=== PATIENT | female | born 1990 | race Caucasian/White ===

== ENCOUNTER 2016-08-22 08:41 | Day surgery (SDC) | payer OTHER ==
[2016-08-22] VITALS (11 sets, daily range): BP systolic 110–148; BP diastolic 58–92; PULSE 64–80; RESP 15–23; Ht 154.9 cm; Wt 50.0 kg
[~2016-08-22] VITALS: Ht 154.9 cm; Wt 50.0 kg
[~2016-08-22 08:41] MED LIST: CIPR500T4 PO; CIPRO 400 MG/200 ML D5W IVPB ONE; EPHEDrine SULFATE 50 MG/5 ML SYG ONE; EPINEPHrine 0.1 MG/ML SYG ONE; HYDR-906 PO; NO HOME MEDICATIONS; ONDA-43 PO; ONDA4TAB8 PO; PANT40TA4 PO; PARO10TA26 PO; SERT50TA PO
[2016-08-22] MEDS ORDERED: METH-493 PO (09:14)
[2016-08-22 09:56] LABS: ADD SCAN DIFF NO
[2016-08-22 09:57] LABS: BASOPHILS % 0.8 % (0.0-2.0); EOSINOPHILS # 0.1 10^3/ul (0.0-0.5); EOSINOPHILS % 2.3 % (0.0-7.0); HEMATOCRIT 40.5 % (37.0-47.0); LYMPHOCYTES # 1.3 10^3/ul (0.8-2.9); LYMPHOCYTES % 28.4 % (15.0-51.0); MEAN CORPUSCULAR HEMOGLOBIN 29.1 pg (29.0-33.0); MEAN CORPUSCULAR HGB CONC 34.6 g/dl (32.0-37.0); MEAN CORPUSCULAR VOLUME 84.2 fl (82.0-101.0); MEAN PLATELET VOLUME 10.6 fl (7.4-10.4); MONOCYTE # 0.4 10^3/ul (0.3-0.9); MONOCYTES % 8.3 % (0.0-11.0); NEUTROPHIL # 2.8 10^3/ul (1.6-7.5); PLATELET COUNT 182 10^3/UL (140-415); RED BLOOD COUNT 4.81 10^6/ul (4.20-5.40); RED CELL DISTRIBUTION WIDTH 11.9 % (11.5-14.5); WHITE BLOOD COUNT 4.7 10^3/ul (4.8-10.8)
[2016-08-22 10:20] LABS: INR 1.18; PROTIME 15.1 Sec (12.2-14.2); PT RATIO 1.2
[2016-08-22 10:21] LABS: PARTIAL THROMBOPLASTIN TIME 32.7 Sec (25.0-35.0)
[2016-08-22 10:23] LABS: CALCIUM 9.6 mg/dl (8.4-10.2); CREATININE 0.54 mg/dl (0.44-1.00); POTASSIUM 4.1 mmol/L (3.5-5.1)
[2016-08-22] MEDS ORDERED: INDOMETHACIN 50 MG SUPP PR ONE (11:29)
[2016-08-22] MEDS ORDERED: IOHEXOL 300MG/ML 30 ML BTL ONE (11:29)
[2016-08-22] MEDS ORDERED: MIDAZOLAM 1 MG/ML 2 ML INJ ONE (11:40)
[2016-08-22] MEDS ORDERED: ONDANSETRON 4 MG INJ ONE (12:06)
[2016-08-22] MEDS ORDERED: DEXAMETHASONE 4 MG/ML 1 ML INJ ONE (12:06)
[2016-08-22] MEDS ORDERED: FAMOTIDINE 20 MG INJ ONE (12:06)
[2016-08-22] MEDS ORDERED: LIDOCAINE 2% (SDV) 5 ML INJ ONE (12:13)
[2016-08-22] MEDS ORDERED: FENTAnyl 50 MCG/ML VIAL ONE (12:13)
[2016-08-22] MEDS ORDERED: PROPOFOL 20 ML ONE (12:13)
[2016-08-22] MEDS ORDERED: DIPHENHYDRAMINE 50 MG INJ IV PRN (13:30)
[2016-08-22] MEDS ORDERED: HYDROmorphONE (0.2 MG/ML) 10ML SYG IV PRN (13:30)
[2016-08-22] MEDS ORDERED: ONDANSETRON 4 MG INJ IV PRN (13:30)
[2016-08-22] MEDS ORDERED: PROCHLORPERAZINE 10 MG INJ IV PRN (13:30)
[2016-08-22] MEDS ORDERED: FENTAnyl 50 MCG/ML VIAL IV PRN (13:30)
[2016-08-22] MEDS ORDERED: MEPERIDINE 25 MG INJ IV PRN (13:30)
[2016-08-22] MEDS ORDERED: LACTATED RINGER'S 500 ML IV SCH (14:00)
[2016-08-22] MEDS ORDERED: INDOMETHACIN 50 MG SUPP PR SCH (14:00)
--- NOTE | 2016-08-22 16:02 | RADRPT ---
Vent Rate: 71 bpm RR Interval: 0 msec NM Interval: 160 msec QRS Duration: 96 msec QT Interval: 388 msec QTC Interval: 421 msec P-R-T [place]: 56 - 70 - 60 degrees Normal sinus rhythm Normal ECG Electronically Signed By: Fausto Thacker [id number]
--- NOTE | 2016-08-22 17:54 | RADRPT ---
PROCEDURE: Intraoperative imaging for ERCP with fluoroscopy. CLINICAL INDICATION: Right upper quadrant pain. Intraoperative. TECHNIQUE: 4 images of the right upper quadrant of the abdomen were obtained in the operating room with an image intensifier. No radiologist was in attendance. 0.1 minutes of fluoroscopy time was used. COMPARISON: 06/10/2015. FINDINGS: Images demonstrate the endoscope in position and contrast injected into the common bile duct. Surgi eric clips are present from previous cholecystectomy. Common bile duct is mildly dilated. A balloon sweep was made. The pancreatic duct was not injected. IMPRESSION: 1. ERCP as described above. RPTAT: QQ .Nhan Lehman MD, MD Date Time Electronically viewed and signed by .Nhan Lehman MD, on 08/22/2016 17:53 .R/
--- NOTE | 2016-08-23 08:55 | GILP ---
DATE OF PROCEDURE: PROCEDURE PERFORMED: ERCP, removal of debris, biopsy, and replacement of stent. INDICATION: A 26-year-old female undergoing this procedure for persistent right upper quadrant pain for the last 3 to 4 months. MRCP revealed dilated bile duct and some narrowing in the distal part of the bile duct. The purpose of this procedure is to evaluate the biliary system and perform thera peutic endoscopy at the same time. INFORMED CONSENT: The risk of the procedure, related and unrelated complications, anesthetic risks, alternatives discussed. Informed consent was obtained. DESCRIPTION OF PROCEDURE: The patient was brought to the OR, sedated by the anesthesiologist, place mode in a prone position. Patient was intubated and Cipro was administered. After obtaining sedation, scope was passed with much ease into esophagus and advanced further down into the stomach. Ampulla was identified. Ampulla had some mild cauliflower like appearance. This could be due to the infla mmation. Selective cholangiogram done. Bile duct appeared dilated. No stone was identified. At t his point, a 12 mm balloon was inflated and balloon sweeping was done. Some debris and sludge came out. At this point, decided to do the biopsy. We did a biopsy of the ampulla at the 11 o'clock pos ition and also the distal part of the bile duct, the papillary portion. A total of 3 biopsies obtai nicol. There was some oozing. At this point, decided to introduce the SpyGlass. SpyGlass was introd uced. The bile duct appeared clean. Multiple bubbles were seen. Pictures were taken. The intra-a mpullary portion of the bile duct was identified. Did not see any tumor; however, the ampullary tis chago was seen close to the intrapapillary portion of the bile duct. There was some bleeding seen com ing out from the biopsy site. At this point, SpyGlass was removed. We observed. Oozing was persis tent, so decided to deploy the stent. The stent was successfully deployed and due to the pressure o f the tamponade, the bleeding had completely stopped. Excellent drainage was established and scope was removed with good patient tolerance. IMPRESSION: 1. Removal of sludge from the distal part of the bile duct. 2. Bile duct was mildly dilated. 3. No stricture or tumor was identified. 4. Biopsies taken from the ampulla and intrapapillary portion of the bile duct. PLAN: Review the histopathology and based on that, we will decide regarding the treatment. Also, myah canchola's stent needs to be removed after 3 to 4 months. Dictated By: IDANIA SHARMA/DAXA Conf#: [id number] DID#: [id number]
== END 2016-08-22 18:50 | disposition home or self-care (01) ==
LOC: SDS 08:41
PROVIDERS: ATTEND Internal Medicine Gastroenterology
DX: K83.8 Other specified diseases of biliary tract (principal); E03.9 Hypothyroidism, unspecified
CPT/HCPCS: 43261; 43276; 74330; 80048; 85025; 85610; 85730; 88305; 93005; C2617; J0171; J0744; J1100; J2250; J2405; J3010; Q9967; Z7512; Z7610

== ENCOUNTER 2016-08-24 10:57 | Emergency (ER) | payer OTHER ==
[~2016-08-24] VITALS: Ht 165.1 cm; Wt 48.5 kg
[~2016-08-24 10:57] MED LIST changes: -CIPR500T4 PO; -CIPRO 400 MG/200 ML D5W IVPB ONE; -EPHEDrine SULFATE 50 MG/5 ML SYG ONE; -EPINEPHrine 0.1 MG/ML SYG ONE; -HYDR-906 PO; +METH-493 PO; -NO HOME MEDICATIONS; -ONDA-43 PO; -ONDA4TAB8 PO; -PANT40TA4 PO; -PARO10TA26 PO; -SERT50TA PO
[2016-08-24 11:06] VITALS: Ht 165.1 cm; Wt 48.5 kg
[2016-08-24] MEDS ORDERED: SOD CHLORIDE 0.9% 1,000 ML IV STA (11:15)
[2016-08-24] MEDS ORDERED: FAMOTIDINE 20 MG INJ IV STA (11:15)
[2016-08-24] MEDS ORDERED: ONDANSETRON 4 MG INJ IV STA (11:15)
[2016-08-24] MEDS ORDERED: morphine 4 MG/ML VIAL IV STA (11:15)
[2016-08-24 12:02] LABS: ADD SCAN DIFF NO
[2016-08-24 12:11] LABS: BASOPHILS % 0.3 % (0.0-2.0); EOSINOPHILS % 0.3 % (0.0-7.0); HEMATOCRIT 39.4 % (37.0-47.0); HEMOGLOBIN 14.1 g/dl (12.0-16.0); LYMPHOCYTES # 1.1 10^3/ul (0.8-2.9); LYMPHOCYTES % 11.7 % (15.0-51.0); MEAN CORPUSCULAR HEMOGLOBIN 30.1 pg (29.0-33.0); MEAN CORPUSCULAR HGB CONC 35.8 g/dl (32.0-37.0); MEAN CORPUSCULAR VOLUME 84.2 fl (82.0-101.0); MEAN PLATELET VOLUME 10.4 fl (7.4-10.4); MONOCYTE # 0.5 10^3/ul (0.3-0.9); MONOCYTES % 5.6 % (0.0-11.0); NEUTROPHIL # 7.4 10^3/ul (1.6-7.5); NEUTROPHILS % 81.7 % (39.0-77.0); PLATELET COUNT 199 10^3/UL (140-415); RED BLOOD COUNT 4.68 10^6/ul (4.20-5.40); RED CELL DISTRIBUTION WIDTH 11.8 % (11.5-14.5); WHITE BLOOD COUNT 9.1 10^3/ul (4.8-10.8)
[2016-08-24 12:25] LABS: ALBUMIN 5.1 g/dl (3.3-4.9); ALBUMIN/GLOBULIN RATIO 1.96; BILIRUBIN,INDIRECT 2.4 mg/dl (0-1.1); BILIRUBIN,TOTAL 2.4 mg/dl (0.2-1.3); CALCIUM 9.4 mg/dl (8.4-10.2); CREATININE 0.6 mg/dl (0.44-1.00); TOTAL PROTEIN 7.7 g/dl (6.1-8.1)
[2016-08-24 12:34] LABS: ADD UMIC NO; URINE BILIRUBIN (Dip) 1+ (NEGATIVE); URINE BLOOD (Dip) NEGATIVE (NEGATIVE); URINE COLOR LT. YELLOW (YELLOW); URINE GLUCOSE (Dip) NEGATIVE (NEGATIVE); URINE KETONES (Dip) 3+ (NEGATIVE); URINE LEUKOCYTE ESTERASE (Dip) NEGATIVE (NEGATIVE); URINE NITRITE (Dip) NEGATIVE (NEGATIVE); URINE TOTAL PROTEIN (Dip) NEGATIVE (NEGATIVE); URINE UROBILINOGEN (Dip) 0.2 E.U./dL (0.1-1.0)
[2016-08-24 12:59] LABS: ICTOTEST NEGATIVE (NEGATIVE)
[2016-08-24] MEDS ORDERED: HYDROmorphONE 1 MG/ML SYG IV STA (13:59)
--- NOTE | 2016-08-24 14:24 | RADRPT ---
PROCEDURE: CT scan of the abdomen and pelvis without IV contrast. CLINICAL INDICATION: Right upper quadrant pain. ERCP 1 day ago with prior cholecystectomy in 2010 . TECHNIQUE: Thin section axial, coronal and sagittal images were performed through the abdomen and pelvis without contrast. Radiation Dose: CTDI: 4.7 and DLP: 248.3 One or more of the following dose reduction techniques were used: - Automated exposure control. - Adjustment of the mA and/or kV according to patient size. Use of iterative reconstruction technique. COMPARISON: Chest x-ray 04/14/2016 06:18 a.m. FINDINGS: Soft tissues: Normal. Lungs and pleural spaces: There is peripheral atelectasis in the dependent portion of the lungs. No pleural effusion or pulmonary nodule is identified. Heart: Normal. The liver, common bile duct and gallbladder: There is pneumobilia. The liver measures 11.9 cm AP. There are clips in the karla hepatis area related to prior cholecystectomy. A 2.8 x 2.6 by 1.4 cm f luid collection is noted in the area of the karla hepatis.A biliary stent extends from the proximal common bile duct into the distal second portion of the duodenum. Gastrointestinal: The stomach and small bowel loops are normal. The colon is unremarkable. There a re diverticula in the AC distal descending and sigmoid colon. Pancreas: Normal. Kidneys, bladder and adrenal glands : The adrenal glands are normal. The kidneys are unremarkable. The urinary bladder is normal. Spleen: Normal. No enlarged inguinal lymph nodes are identified. Lymph nodes: No enlarged inguinal, pelvic sidewall, retroperitoneal, mesenteric or periportal lymph nodes are identified. Reproductive system and pelvis : The uterus is slightly retroflexed. There is a U-shaped metal clip along the ventral lower uterine segment. Bony elements: Normal. Vasculature: Normal. IMPRESSION: 1. Pneumobilia with a biliary stent extending from the proximal common bile duct into the second po rtion of the duodenum. 2. 2.6 x 2.8 by 1.4 cm encapsulated fluid collection inferior to the clips in the karla hepatis are a which may be the result of a hematoma, seroma or abscess. 3. Prior pelvic surgery. RPTAT:AAJJ Sim Apple, Physician Date Time Electronically viewed and signed by Sim Chiu, Physician on 08/24/2016 14:24 JM/
--- NOTE | 2016-08-24 14:47 | ERD ---
ER Documentation Chief Complaint Date/Time DATE: 08/24/16 TIME: 14:43 Chief Complaint Complains of abdominal pain post surgery sent from MD for evaluation HPI This is a 26-year-old female presents to the emergency room for evaluation of abdominal pain. This patient states that she has had abdominal pain for the past 2 days and localizes it to the right upper quadrant. She states that she has had a previous cholecystectomy and recently underwent an ERCP by her sanitary chemist Dr. Sánchez who evaluated this patient in office and referred her to the emergency room for further workup. The patient states that she has some nausea denies any vomiting he denies any radiation of the pain. She denies any aggravating or relieving factors for her symptoms. ROS All systems reviewed and are negative except as per history of present illness. Medications Home Meds Reported Medications Methimazole* (Methimazole*) 5 Mg Tablet, 5 MG PO QHS, TAB 08/22/16 Discontinued Reported Medications Sertraline Hcl* (Zoloft*) 50 Mg Tablet, 50 MG PO DAILY, TAB 02/07/15 Paroxetine Hcl* (Paxil*) 10 Mg Tablet, 15 MG PO DAILY, TAB 02/07/15 [No Home Medications] No Conflict Check 03/15/10 Discontinued Scripts Ondansetron Hcl* (Zofran*) 4 Mg Tablet, 4 MG PO Q6H for NAUSEA AND/OR VOMITING, #30 TAB Prov:DEMI SHAY PA-C 06/03/15 Hydrocodone Bit-Acetaminophen ([place]) 5-325 Mg Tablet, 1 TAB PO Q4H Y for PAIN, #7 TAB Prov:DEMI SHAY PA-C 06/03/15 Ondansetron Hcl* (Zofran*) 4 Mg Tab, 4 MG PO Q6H Y for NAUSEA AND OR VOMITING for 10 Days, TAB Prov:ULISSES WORLEY MD 02/11/15 Ciprofloxacin Hcl* (Ciprofloxacin Hcl*) 500 Mg Tablet, 500 MG PO BID for 10 Days , TAB Prov:ULISSES WORLEY MD 02/11/15 Pantoprazole* (Pantoprazole*) 40 Mg Tabec, 40 MG PO DAILY@06 for 28 Days, BOTTLE Prov:ULSISES WORLEY MD 02/11/15 Allergies Allergies: Coded Allergies: Penicillins (Unverified Allergy, Unknown, 08/24/16) PMhx/Soc History of Surgery: Yes (Jaclyn, ERCP) Anesthesia Reaction: No Hx Neurological Disorder: No Hx Respiratory Disorders: No Hx Cardiac Disorders: No Hx Psychiatric Problems: No Hx Miscellaneous Medical Probl: No Hx Alcohol Use: No Hx Substance Use: No Hx Tobacco Use: No Smoking Status: Never smoker Physical Exam Vitals Vital Signs Date Time Temp Pulse Resp B/P Pulse Ox O2 Delivery O2 Flow Rate FiO2 08/24/16 11:15 71 18 117/70 99 Room Air 08/24/16 11:06 98.8 83 20 122/79 98 Physical Exam INITIAL VITAL SIGNS: Reviewed by me GENERAL: The patient is well developed and appropriate for usual state of health in no apparent distress HEENT: Pupils equal, round, and reactive to light. EOMI. There is no scleral icterus. NECK: C-spine is soft and supple, there is no meningismus. There is no cervical lymphadenopathy. LUNGS: Clear to auscultation bilaterally. There are no rales, wheezes or rhonchi. HEART: Regular rate and rhythm, no murmurs, clicks, rubs or gallops. ABDOMEN: Positive Andino sign, soft, non-tender, non-distended. There are bowel sounds in all four quadrants. No rebound or guarding. EXTREMITIES: There is no peripheral cyanosis or edema. No focal swelling or erythema. NEUROLOGICAL: The patient moves all four extremities with 5/5 strength. Cranial nerves II - XII are intact. Normal gait. Alert and oriented SKIN: There is no apparent rash or petechiae. HEME/LYMPHATIC: There is no evidence of excessive bruising or lymphedema. PSYCHIATRIC: The patient does not appear anxious or depressed. Result Diagram: 08/24/16 1150 08/24/16 1150 Results 24 hrs Laboratory Tests Test 08/24/16 11:50 White Blood Count 9.110^3/ul Red Blood Count 4.6810^6/ul Hemoglobin 14.1g/dl Hematocrit 39.4% Mean Corpuscular Volume 84.2fl Mean Corpuscular Hemoglobin 30.1pg Mean Corpuscular Hemoglobin Concent 35.8g/dl Red Cell Distribution Width 11.8% Platelet Count 16188^3/UL Mean Platelet Volume 10.4fl Neutrophils % 81.7% Lymphocytes % 11.7% Monocytes % 5.6% Eosinophils % 0.3% Basophils % 0.3% Nucleated Red Blood Cells % 0.0/100WBC Neutrophils # 7.410^3/ul Lymphocytes # 1.110^3/ul Monocytes # 0.510^3/ul Eosinophils # 0.010^3/ul Basophils # 0.010^3/ul Nucleated Red Blood Cells # 0.010^3/ul Urine Color LT. YELLOW Urine Clarity CLEAR Urine pH 6.0 Urine Specific [place] 1.025 Urine Ketones 3+ Urine Nitrite NEGATIVE Urine Bilirubin 1+ Urine Ictotest NEGATIVE Urine Urobilinogen 0.2 E.U./dL Urine Leukocyte Esterase NEGATIVE Urine Hemoglobin NEGATIVE Urine Glucose NEGATIVE% Urine Total Protein NEGATIVE Urine Test NEGATIVE Sodium Level 141mmol/L Potassium Level 4.0mmol/L Chloride Level 102mmol/L Carbon Dioxide Level 26mmol/L Anion Gap 17 Blood Urea Nitrogen 19mg/dl Creatinine 0.60mg/dl Glucose Level 75mg/dl Calcium Level 9.4mg/dl Total Bilirubin 2.4mg/dl Direct Bilirubin 0.00mg/dl Indirect Bilirubin 2.4mg/dl Aspartate Amino Transf (AST/SGOT) 26IU/L Alanine Aminotransferase (ALT/SGPT) 29IU/L Alkaline Phosphatase 89IU/L Total Protein 7.7g/dl Albumin 5.1g/dl Globulin 2.60g/dl Albumin/Globulin Ratio 1.96 Lipase 97U/L Current Medications Medications (Trade) Dose Ordered Sig/Mathew Route PRN Reason Start Time Stop Time Status Last Admin Dose Admin Sodium Chloride (NS) 1,000 ml @ 1,000 mls/hr Q1H STAT IV 08/24/16 11:15 08/24/16 12:14 DC 08/24/16 12:18 Morphine Sulfate (morphine) 4 mg ONCE STAT IV 08/24/16 11:15 08/24/16 11:16 DC 08/24/16 12:18 Ondansetron HCl (Zofran Inj) 4 mg ONCE STAT IV 08/24/16 11:15 08/24/16 11:16 DC 08/24/16 12:17 Famotidine (Pepcid Iv) 20 mg ONCE STAT IV 08/24/16 11:15 08/24/16 11:16 DC 08/24/16 12:17 Hydromorphone HCl (Dilaudid) 0.5 mg ONCE STAT IV 08/24/16 13:59 08/24/16 14:00 DC Procedures/MDM CT abdomen pelvis without: 1. Pneumobilia with a biliary stent extending from the proximal common bile duct into the second portion of the duodenum. 2. 2.6 x 2.8 by 1.4 cm encapsulated fluid collection inferior to the clips in the karla hepatis area which may be the result of a hematoma, seroma or abscess. 3. Prior pelvic surgery. This 26-year-old female presents to the ER for evaluation of abdominal pain. The patient was sent in by her sanitary chemist for evaluation of abdominal pain. When I evaluated this patient she did have right upper quadrant pain. Lab work does reveal mild elevation in indirect bilirubin. I did obtain a CAT scan of the patient's abdomen and pelvis. Please see results above. I contacted her sanitary chemist and had discussed the patient's CAT scan results findings. He was concerned about the fluid collection in got a second opinion from radiologist, Dr. Lehman. Dr. Lopez states that this fluid collection is actually in the cystic duct. This patient has no fever, no signs of ascending cholangitis at this time. I have spoken to Dr. Sánchez who states this patient can be discharged home with a prescription for ciprofloxacin to take over the course of the next 7 days with instructions to follow-up in his office within a week. I relayed this information to the patient was in agreement with the plan of care. She will be discharged home with a prescription for [place] for breakthrough pain, and ciprofloxacin. Departure Diagnosis: Primary Impression: Abdominal pain Additional Impressions: Abdominal colic History of ERCP S/P ERCP Condition: Stable PRAKASH REDDY DO Aug 24, 2016 14:47
[2016-08-24] MEDS ORDERED: CIPR500T4 PO (14:49)
[2016-08-24] MEDS ORDERED: ONDA4TAB8 PO (14:49)
[2016-08-24] MEDS ORDERED: HYDR-906 PO (14:49)
[2016-08-24 15:47] VITALS: BP 117/71; PULSE 65; RESP 20
== END 2016-08-24 15:49 | disposition home or self-care (01) ==
LOC: E/R 10:57
DX: R10.11 Right upper quadrant pain (principal); R40.2252 Coma scale, best verbal response, oriented, at arrival to emergency department; R40.2142 Coma scale, eyes open, spontaneous, at arrival to emergency department; R40.2362 Coma scale, best motor response, obeys commands, at arrival to emergency department; R10.2 Pelvic and perineal pain
CPT/HCPCS: 74176; 80053; 81003; 83690; 84703; 85025; J1170; J2270; J2405; J7030; Z7610; 36415; 96374; 96375

== ENCOUNTER 2016-09-04 13:49 | Emergency (ER) | payer OTHER ==
[~2016-09-04] VITALS: Ht 154.9 cm; Wt 48.0 kg
[~2016-09-04 13:49] MED LIST changes: +CIPR500T4 PO; +HYDR-906 PO; +ONDA4TAB8 PO
[2016-09-04 14:01] VITALS: Ht 154.9 cm; Wt 48.0 kg
[2016-09-04] MEDS ORDERED: ONDANSETRON 4 MG INJ IV STA (14:58)
[2016-09-04] MEDS ORDERED: morphine 4 MG/ML VIAL IV STA (14:58)
[2016-09-04] MEDS ORDERED: SOD CHLORIDE 0.9% 1,000 ML IV STA (14:58)
[2016-09-04 15:27] LABS: ADD SCAN DIFF NO
[2016-09-04 15:29] LABS: BASOPHILS % 0.7 % (0.0-2.0); EOSINOPHILS # 0.1 10^3/ul (0.0-0.5); EOSINOPHILS % 1.8 % (0.0-7.0); HEMATOCRIT 40.2 % (37.0-47.0); HEMOGLOBIN 13.9 g/dl (12.0-16.0); LYMPHOCYTES # 1.4 10^3/ul (0.8-2.9); LYMPHOCYTES % 23.4 % (15.0-51.0); MEAN CORPUSCULAR HEMOGLOBIN 29.1 pg (29.0-33.0); MEAN CORPUSCULAR HGB CONC 34.6 g/dl (32.0-37.0); MEAN CORPUSCULAR VOLUME 84.1 fl (82.0-101.0); MEAN PLATELET VOLUME 10.6 fl (7.4-10.4); MONOCYTE # 0.4 10^3/ul (0.3-0.9); MONOCYTES % 7.4 % (0.0-11.0); NEUTROPHILS % 66.5 % (39.0-77.0); PLATELET COUNT 225 10^3/UL (140-415); RED BLOOD COUNT 4.78 10^6/ul (4.20-5.40)
--- NOTE | 2016-09-04 15:38 | RADRPT ---
PROCEDURE: Abdominal Ultrasound (right upper quadrant). CLINICAL INDICATION: Right upper quadrant pain. TECHNIQUE: Multiple real-time longitudinal and transverse images of the right upper quadrant of th e abdomen were acquired utilizing a curved array transducer. Images were reviewed on a high-resoluti on PACS workstation. COMPARISON: CT abdomen pelvis 08/14/2016 FINDINGS: The liver is normal in size and echogenicity. No focal masses are identified. There is mild extra hepatic ductal dilatation, normal in the post cholecystectomy setting. A common bile duct stent is in place. The common bile duct measures 9.7 mm in diameter. There is no evidence of intrahepatic du ctal dilatation. The gallbladder is surgically absent. The visualized portions of the pancreas are unremarkable with obscuration of the tail of the pancrea s. No free fluid is identified. There is no evidence of right hydronephrosis or renal calcification. The right kidney measures 10.4 cm in length. The visualized portions of the aorta and inferior vena cava are within normal limits. IMPRESSION: 1. Status post cholecystectomy. 2. Mild extrahepatic ductal dilatation which can be normal in the post cholecystectomy setting. In cidental note is made of a common bile duct stent. RPTAT: KK .Cesar Hoang MD, MD Date Time Electronically viewed and signed by .Cesar Hoang MD, MD on 09/04/2016 15:38 .B/
[2016-09-04 15:45] LABS: ADD UMIC YES; UR AMORPHOUS CRYSTAL FEW /HPF (NONE SEEN); UR ASCORBIC ACID 40 mg/dL (NEGATIVE); UR BILIRUBIN (Dip) NEGATIVE (NEGATIVE); UR BLOOD (Dip) NEGATIVE (NEGATIVE); UR CLARITY CLOUDY (CLEAR); UR COLOR YELLOW (YELLOW); UR GLUCOSE (Dip) NEGATIVE (NEGATIVE); UR KETONES (Dip) TRACE mg/dL (NEGATIVE); UR LEUKOCYTE ESTERASE (Dip) NEGATIVE Leu/ul (NEGATIVE); UR MUCUS FEW /HPF (NONE SEEN); UR NITRITE (Dip) NEGATIVE (NEGATIVE); UR RBC 1 /HPF (0-5); UR SPECIFIC GRAVITY (Dip) 1.018 (1.003-1.030); UR SQUAMOUS EPITHELIAL CELL FEW /HPF (FEW); UR TOTAL PROTEIN (Dip) NEGATIVE (NEGATIVE); UR UROBILINOGEN (Dip) NEGATIVE (NEGATIVE)
[2016-09-04 15:51] LABS: ALBUMIN 4.9 g/dl (3.3-4.9); ALBUMIN/GLOBULIN RATIO 2.04; BILIRUBIN,INDIRECT 1.7 mg/dl (0-1.1); BILIRUBIN,TOTAL 1.7 mg/dl (0.2-1.3); CALCIUM 9.3 mg/dl (8.4-10.2); CREATININE 0.63 mg/dl (0.44-1.00); POTASSIUM 3.8 mmol/L (3.5-5.1); TOTAL PROTEIN 7.3 g/dl (6.1-8.1)
[2016-09-04] MEDS ORDERED: TRAM50TA2 PO (16:40)
--- NOTE | 2016-09-09 13:54 | ERD ---
ER Documentation Chief Complaint Date/Time DATE: 09/09/16 TIME: 13:49 Chief Complaint ruq abd pain since last week with nausea HPI This 26-year-old female presents with a two-week history of intermittent right upper quadrant abdominal pain. Is worse after eating with nausea. History significant for biliary stent placed [address] MARILIA disla with the patient described as sludge in the common bile duct status post cholecystectomy. She denies any vomiting, fevers. She denies any lower abdominal pain or urinary complaints. She was seen here 1 week ago had a CT scan of the abdomen and pelvis which showed dilated cystic duct according to the radiologist. She was treated empirically with Cipro for possible subclinical infection. She had minimal improvement with antibiotics. She has an appointment with GI this week. ROS All systems reviewed and are negative except as per history of present illness. Medications Home Meds Active Scripts Tramadol HCl (Tramadol HCl) 50 Mg Tablet, 50 MG PO Q4 Y for PAIN, #20 TAB Prov:TONIA MOREIRA MD 09/04/16 Ondansetron Hcl* (Zofran*) 4 Mg Tablet, 4 MG PO Q8H Y for NAUSEA AND/OR VOMITING , #6 TAB Prov:PRAKASH REDDY DO 08/24/16 Hydrocodone/Acetaminophen ([place] 5-325 Tablet) 1 Each Tablet, 1 TAB PO Q6H Y for PAIN, #10 TAB Prov:PRAKASH REDDY DO 08/24/16 Ciprofloxacin Hcl* (Ciprofloxacin Hcl*) 500 Mg Tablet, 500 MG PO BID for 7 Days , TAB Prov:PRAKASH REDDY DO 08/24/16 Reported Medications Methimazole* (Methimazole*) 5 Mg Tablet, 5 MG PO QHS, TAB 08/22/16 Allergies Allergies: Coded Allergies: Penicillins (Unverified Allergy, Unknown, 08/24/16) PMhx/Soc History of Surgery: Yes (Jaclyn, ERCP) Anesthesia Reaction: No Hx Neurological Disorder: No Hx Respiratory Disorders: No Hx Cardiac Disorders: No Hx Psychiatric Problems: No Hx Miscellaneous Medical Probl: No Hx Alcohol Use: No Hx Substance Use: No Hx Tobacco Use: No Smoking Status: Never smoker Physical Exam Physical Exam Const: [] Alert, [id number]. Head: Atraumatic Eyes: Normal Conjunctiva ENT: Normal External Ears, Nose and Mouth. Neck: Full range of motion..~ No meningismus. Resp: Clear to auscultation bilaterally Cardio: Regular rate and rhythm, no murmurs Abd: Soft, minimal right upper quadrant tenderness without rebound. There is no tenderness at McBurney's point non distended. Normal bowel sounds Skin: No petechiae or rashes Back: No midline or flank tenderness Ext: No cyanosis, or edema Neur: Awake and alert Psych: Normal Mood and Affect Results 24 hrs Laboratory Tests Test 09/04/16 14:10 09/04/16 15:15 White Blood Count 6.010^3/ul Red Blood Count 4.7810^6/ul Hemoglobin 13.9g/dl Hematocrit 40.2% Mean Corpuscular Volume 84.1fl Mean Corpuscular Hemoglobin 29.1pg Mean Corpuscular Hemoglobin Concent 34.6g/dl Red Cell Distribution Width 12.0% Platelet Count 64741^3/UL Mean Platelet Volume 10.6fl Neutrophils % 66.5% Lymphocytes % 23.4% Monocytes % 7.4% Eosinophils % 1.8% Basophils % 0.7% Nucleated Red Blood Cells % 0.0/100WBC Neutrophils # 4.010^3/ul Lymphocytes # 1.410^3/ul Monocytes # 0.410^3/ul Eosinophils # 0.110^3/ul Basophils # 0.010^3/ul Nucleated Red Blood Cells # 0.010^3/ul Sodium Level 141mmol/L Potassium Level 3.8mmol/L Chloride Level 102mmol/L Carbon Dioxide Level 28mmol/L Anion Gap 15 Blood Urea Nitrogen 10mg/dl Creatinine 0.63mg/dl Glucose Level 86mg/dl Calcium Level 9.3mg/dl Total Bilirubin 1.7mg/dl Direct Bilirubin 0.00mg/dl Indirect Bilirubin 1.7mg/dl Aspartate Amino Transf (AST/SGOT) 22IU/L Alanine Aminotransferase (ALT/SGPT) 27IU/L Alkaline Phosphatase 68IU/L Total Protein 7.3g/dl Albumin 4.9g/dl Globulin 2.40g/dl Albumin/Globulin Ratio 2.04 Lipase 89U/L Urine Color YELLOW Urine Clarity CLOUDY Urine pH 7.0 Urine Specific [place] 1.018 Urine Ketones TRACEmg/dL Urine Nitrite NEGATIVEmg/dL Urine Bilirubin NEGATIVEmg/dL Urine Urobilinogen NEGATIVEmg/dL Urine Leukocyte Esterase NEGATIVELeu/ul Urine Microscopic RBC 1/HPF Urine Microscopic WBC 0/HPF Urine Squamous Epithelial Cells FEW/HPF Urine Amorphous Crystals FEW/HPF Urine Mucus FEW/HPF Urine Hemoglobin NEGATIVEmg/dL Urine Glucose NEGATIVEmg/dL Urine Total Protein NEGATIVEmg/dl Current Medications Medications (Trade) Dose Ordered Sig/Mathew Route PRN Reason Start Time Stop Time Status Last Admin Dose Admin Sodium Chloride (NS) 1,000 ml @ 1,000 mls/hr Q1H STAT IV 09/04/16 14:58 09/04/16 15:57 DC Morphine Sulfate (morphine) 4 mg ONCE STAT IV 09/04/16 14:58 09/04/16 15:01 DC Ondansetron HCl (Zofran Inj) 4 mg ONCE STAT IV 09/04/16 14:58 09/04/16 15:01 DC Procedures/MDM CBC, CMP and lipase showed no acute abnormalities. There is mildly elevated indirect bilirubin as well as total bilirubin. Direct bilirubin is normal. Lipase is normal. Right upper quadrant limited ultrasound shows no acute abnormalities. There is a mildly dilated common bile duct which may be normal in the setting of biliary stent according the radiologist. CT was deferred given normal CT scan 1 week ago no changes in laboratory results or condition. Call was placed to Dr. CAPELLAN, who is familiar with the patient. He is comfortable treating the patient as an outpatient for right upper quadrant pain. She has had previous studies which showed no evidence of obstruction or infection and can be followed as an outpatient. She will be discharged home a short course of tramadol and outpatient follow-up. Patient was advised to return for fevers, vomiting, worsening pain, blood, new worsening symptoms. Signs and symptoms do not currently suggest appendicitis, acute abdomen, obstruction. There is no signs or symptoms to suggest pneumonia, additional causes of presenting complaints Departure Diagnosis: Primary Impression: Abdominal pain Abdominal location: right upper quadrant Qualified Code: R10.11 - Right upper quadrant abdominal pain Condition: Stable Patient Instructions: Abdominal Pain Additional Instructions: Examinations normal today. Discussed with Dr. valderrama. suspect normal postoperative pain. Return for fevers, vomiting, new or worsening symptoms or with GI as scheduled. TONIA MOREIRA MD Sep 09, 2016 13:54
== END 2016-09-04 16:55 | disposition home or self-care (01) ==
LOC: FTE 13:49
DX: R10.11 Right upper quadrant pain (principal)
CPT/HCPCS: 76705; 80053; 81001; 83690; 85025; J7030; Z7502

== ENCOUNTER 2017-01-23 09:24 | Day surgery (SDC) | payer OTHER ==
[~2017-01-23] VITALS: Ht 154.9 cm; Wt 48.3 kg
[2017-01-23] VITALS (11 sets, daily range): BP systolic 91–136; BP diastolic 69–86; PULSE 67–106; RESP 16–39; Ht 154.9 cm; Wt 48.3 kg
[~2017-01-23 09:24] MED LIST changes: +LIDOCAINE 2% (SDV) 5 ML INJ ONE; +TRAM50TA2 PO
[2017-01-23] MEDS ORDERED: PROPOFOL 100 ML ONE (10:40)
[2017-01-23] MEDS ORDERED: hydrALAzine 20 MG INJ IV PRN (11:00)
[2017-01-23] MEDS ORDERED: FENTAnyl 50 MCG/ML VIAL IV PRN ×3 (11:00)
[2017-01-23] MEDS ORDERED: KETOROLAC 30 MG INJ IV PRN (11:00)
[2017-01-23] MEDS ORDERED: ONDANSETRON 4 MG INJ IV PRN (11:00)
[2017-01-23] MEDS ORDERED: OXYCODONE/ACETAMINOPHEN (5/325) TAB PO PRN ×2 (11:00)
[2017-01-23] MEDS ORDERED: DIPHENHYDRAMINE 50 MG INJ IV PRN (11:00)
[2017-01-23] MEDS ORDERED: EPHEDrine SULFATE 50 MG/5 ML SYG IV PRN (11:00)
[2017-01-23] MEDS ORDERED: LABETALOL HCL 20MG INJ IV PRN (11:00)
[2017-01-23] MEDS ORDERED: MEPERIDINE 25 MG INJ IV PRN (11:00)
[2017-01-23] MEDS ORDERED: METOCLOPRAMIDE 10 MG INJ IV PRN (11:00)
[2017-01-23] MEDS ORDERED: HYDROmorphONE (0.2 MG/ML) 10ML SYG IV PRN ×3 (11:00)
[2017-01-23] MEDS ORDERED: CIPROFLOXACIN 400MG/D5W 200 ML ONE (11:03)
--- NOTE | 2017-01-23 11:37 | OPPN ---
Date/Time of Note Date/Time of Note DATE: 01/23/17 TIME: 11:37 Proc Note GI Procedure Date 01/23/17 Indication: follow-up Pre-procedure Diagnosis Biliary stent Post-procedure Diagnosis 1. Removal of the biliary stent 2. Removal of sludge Procedure Performed: ERCP Surgeon see signature line [employer] Machinist none Anesthesia Type: MAC Tourniquet Time none EBL none Transfusion required none Biopsy 1: None Grafts/Implants none Tubes/Drains none Complication(s) none Disposition: PACU Procedure Description See dictated report IDANIA CAPELLAN MD Jan 23, 2017 11:37
[2017-01-23] MEDS: MIDAZOLAM 1 MG/ML 2 ML INJ IV PRN ×2 (11:53→12:00)
--- NOTE | 2017-01-23 12:09 | GILP ---
DATE OF PROCEDURE: INDICATION: A 26-year-old female undergoing this procedure for removal of biliary stent and evaluat ion of the bile duct. The risks of the procedure, related and unrelated complications, anesthetic r isks, alternatives discussed and informed consent was obtained. DESCRIPTION OF PROCEDURE: The patient was brought to the GI lab, sedated by Dr. Davis. After approp riate sedation, patient placed in a prone position, ERCP scope passed with much ease into esophagus and advanced further down into stomach and duodenum. Stent was identified, snared was passed and th e tip of the stent was snared and removed endoscopically through the biopsy channel. With the help of sphincterotome, the bile duct was selectively cannulated, balloon was passed, a 12 mm balloon was used and swept the bile duct multiple times. Sludge came out and at the end of sweeping no stone w as left behind. There was excellent drainage. The scope was removed with excellent patient toleran ce. IMPRESSION 1. Removal of biliary stent. 2. Removal the sludge. PLAN: Monitor liver function tests and her symptoms as an outpatient. Resume . Dictated By: IDANIA SHARMA/DAXA Conf#: [id number] DID#: [id number]
[2017-01-23] MEDS ORDERED: OXYCODONE/ACETAMINOPHEN (5/325) TAB PO ONE (16:00)
--- NOTE | 2017-01-23 16:42 | RADRPT ---
PROCEDURE: Intraoperative imaging for ERCP with fluoroscopy. CLINICAL INDICATION: Right upper quadrant pain. Intraoperative. TECHNIQUE: 2 images of the right upper quadrant of the abdomen were obtained in the operating room with an image intensifier. No radiologist was in attendance. Fluoroscopy time is 1.9 seconds COMPARISON: ERCP dated 08/22/2016. FINDINGS: Images demonstrate the endoscope in position and contrast injected into the common bile duct. Multip le filling defects are present in the common bile duct consistent with gas bubbles or stones. A ball oon sweep was made. Surgical clips are present from previous cholecystectomy. The pancreatic duct wa s not injected. IMPRESSION: 1. ERCP as described above. RPTAT: QQ .Nhan Lehman MD, Date Time Electronically viewed and signed by .Nhan Lehman MD, on 01/23/2017 16:42 .R/
== END 2017-01-23 16:30 | disposition home or self-care (01) ==
LOC: SDS 09:24 → GIL 09:24
PROVIDERS: ATTEND Internal Medicine Gastroenterology
DX: K83.8 Other specified diseases of biliary tract (principal)
CPT/HCPCS: 43264; 74330; J0744; J1885; J2250; J2405; J3010; Z7512; Z7610